=== PATIENT | female | born 1990 | race African-American/Black ===

== ENCOUNTER 2018-12-23 07:15 | Emergency (ER) | payer SELFPAY ==
--- NOTE | 2018-12-23 09:44 | ER Document Report ---
ED Medical Screen (RME) - General Chief Complaint: Abdominal Pain Stated Complaint: RASH/ABDOMINAL PAIN/DIZZY/VOMITING Time Seen by Provider: 12/23/18 09:42 Mode of Arrival: Ambulatory Information source: Patient Notes: Patient is a 28-year-old female who presented to the ER for multiple complaints, approximately 3 to 4 days of intermittent hives, abscess that she drained her left abdominal wall on the left side, no history of MRSA, also complaining of pelvic discomfort with increased vaginal discharge, no burning with urination, fevers or chills. She also admits to dizziness and vomiting. TRAVEL OUTSIDE OF THE [place] IN LAST 30 DAYS: No - Related Data Allergies/Adverse Reactions: activated charcoal [From Charcoal Plus] Allergy (Verified 01/09/15 16:00) simethicone [From Charcoal Plus] Allergy (Verified 01/09/15 16:00) Past Medical History - General Information source: Patient Past Surgical History: Reports: Hx Oral Surgery - Immunizations Hx Diphtheria, Pertussis, Tetanus Vaccination: Yes Review of Systems - Review of Systems Gastrointestinal: See HPI Female Genitourinary: See HPI Skin: See HPI Physical Exam - Vital signs Vitals: Temp Pulse Resp BP Pulse Ox 98.3 F 62 16 122/59 L 100 12/23/18 07:20 12/23/18 07:20 12/23/18 07:20 12/23/18 07:20 12/23/18 07:20 - Notes Notes: PHYSICAL EXAMINATION: GENERAL: Well-appearing and in no acute distress. ABDOMEN: Soft, no tenderness. No guarding, no rebound Course - Vital Signs Vital signs: Temp Pulse Resp BP Pulse Ox 98.3 F 62 16 122/59 L 100 12/23/18 07:20 12/23/18 07:20 12/23/18 07:20 12/23/18 07:20 12/23/18 07:20
[2018-12-23 10:39] LABS: ABSOLUTE EOSINOPHILS # (AUTO) 0.1 10^3/uL (0.0-0.6); ABSOLUTE MONOCYTES (AUTO) 0.4 10^3/uL (0.1-1.4); ABSOLUTE NEUT (AUTO) 3.8 10^3/uL (1.7-8.2); BASOPHILS % (AUTO) 0.8 % (0-2); EOSINOPHILS % (AUTO) 2.2 % (0-6); HEMOGLOBIN 11.6 g/dL (12.0-15.5); LYMPHOCYTES % (AUTO) 18.6 % (13-45); MEAN CORPUSCULAR HEMOGLOBIN 23.4 pg (27.0-33.4); MEAN CORPUSCULAR HGB CONC 31.4 g/dL (32.0-36.0); MEAN CORPUSCULAR VOLUME 75 fl (80-97); MONOCYTES % (AUTO) 7.5 % (3-13); PLATELET COUNT 307 10^3/uL (150-450); RED BLOOD COUNT 4.96 10^6/uL (3.72-5.28); RED CELL DISTRIBUTION WIDTH 14.4 % (11.5-14.0); SEGMENTED NEUTROPHILS % (AUTO) 70.9 % (42-78); TOTAL CELLS COUNTED % (AUTO) 100 %; WHITE BLOOD COUNT 5.3 10^3/uL (4.0-10.5)
--- NOTE | 2018-12-23 10:49 | ER Document Report ---
ED General - General Chief Complaint: Abdominal Pain Stated Complaint: RASH/ABDOMINAL PAIN/DIZZY/VOMITING Time Seen by Provider: 12/23/18 09:42 Mode of Arrival: Ambulatory Information source: Patient Notes: Patient presents emergency department with multiple complaints. Patient reports she has a rash that comes and goes past couple weeks. She reports she works at [employer] and thinks it may be the boxes she is picking up. No rash now noted. Patient also reports she had a abscess on her left side and it popped a couple days ago site is benign now. Patient reports she is been having lower pelvic pain with vaginal discharge for the past 2 weeks. She describes the discharge is white thinner than yogurt. Denies itch. Denies pain with void. Reports she is been dizzy on and off and she is possibly . She is . Last menstrual period was December 03. Last bowel movement was yesterday was normal. Reports she vomited on and off all day yesterday. No vomiting today. Denies f ever or diarrhea. Patient is nontoxic looking playing on her phone the entire time we talked. TRAVEL OUTSIDE OF THE [place] IN LAST 30 DAYS: No - HPI Onset: Other Onset/Duration: Persistent, Waxing and waning Quality of pain: Pressure Severity: Severe Pain Level: 4 Associated symptoms: Vomiting Exacerbated by: Denies Relieved by: Denies Similar symptoms previously: No Recently seen / treated by doctor: No - Related Data Allergies/Adverse Reactions: activated charcoal [From Charcoal Plus] Allergy (Verified 01/09/15 16:00) simethicone [From Charcoal Plus] Allergy (Verified 01/09/15 16:00) Past Medical History - General Information source: Patient Last Menstrual Period: 12/03/18 - Social History Smoking Status: Never Smoker Cigarette use (# per day): No Frequency of alcohol use: Occasional Drug Abuse: None Occupation: [employer] Lives with: Family Family History: Reviewed & Not Pertinent Patient has suicidal ideation: No Patient has homicidal ideation: No - Medical History Medical History: Negative Renal/ Medical History: Denies: Hx Peritoneal Dialysis Past Surgical History: Reports: Hx Section, Hx Oral Surgery - Immunizations Hx Diphtheria, Pertussis, Tetanus Vaccination: Yes Review of Systems - Review of Systems Notes: Review HPI for review of systems., All other systems negative Physical Exam - Vital signs Vitals: Temp Pulse Resp BP Pulse Ox 98.3 F 62 16 122/59 L 100 12/23/18 07:20 12/23/18 07:20 12/23/18 07:20 12/23/18 07:20 12/23/18 07:20 - General General appearance: Appears well, Alert In distress: None - HEENT Head: Normocephalic Eyes: Normal Conjunctiva: Normal Mouth/Lips: Normal Mucous membranes: Normal Pharynx: Normal Neck: Normal, Supple. No: Lymphadenopathy - Respiratory Respiratory status: No respiratory distress Chest status: Nontender Breath sounds: Normal Chest palpation: Normal - Cardiovascular Rhythm: Regular Heart sounds: Normal auscultation - Abdominal Inspection: Normal Distension: No distension Bowel sounds: Normal Tenderness: Nontender Organomegaly: No organomegaly - Extremities General upper extremity: Normal ROM General lower extremity: Normal ROM - Neurological Neuro grossly intact: Yes Cognition: Normal Orientation: AAOx4 [place] Coma Scale Eye Opening: Spontaneous [place] Coma Scale Verbal: Oriented [place] Coma Scale Motor: Obeys Commands [place] Coma Scale Total: 15 Speech: Normal Motor strength normal: LUE, RUE, LLE, RLE Sensory: Normal - Psychological Associated symptoms: Normal affect, Normal mood - Skin Skin Temperature: Warm Skin Moisture: Dry Skin Color: Normal Course - Re-evaluation Re-evalutation: 12/23/18 Labs unremarkable patient was instructed on all labs. Instructed to STDs results will take at least 3 hours. She was given the option of be treated for STDs now, wait for results or come back for treatment patient request to be treated for STDs. 12/23/18 16:07 STD culture negative. Dictation of this chart was performed using voice recognition software; therefore, there may be some unintended grammatical errors. 12/23/18 16:08 - Vital Signs Vital signs: Temp Pulse Resp BP Pulse Ox 98.3 F 57 L 16 114/65 100 12/23/18 12:43 12/23/18 12:43 12/23/18 07:20 12/23/18 12:43 12/23/18 12:43 - Laboratory Result Diagrams: 12/23/18 10:23 12/23/18 10:23 Laboratory results interpreted by me: 12/23/18 12/23/18 12/23/18 10:23 10:23 10:23 Hgb 11.6 L MCV 75 L MCH 23.4 L MCHC 31.4 L RDW 14.4 H Chloride 108 H Creatinine 0.50 L Urine Ketones TRACE H Procedures - Pelvic Exam Pelvic exam Time completed: 11:25 Cultures obtained: No - URINE CULTURES COLLECTED Wet prep obtained: Yes Herpes culture obtained: No POC sent to lab: No Foreign body removed: No Bimanual exam performed: Yes Witnessed by: Radha HILLMAN Notes: 12/23/18 11:42 WHITE DISCHARGE NOTE Discharge - Discharge Clinical Impression: Vaginal discharge Abdominal pain Qualifiers: Abdominal location: unspecified location Qualified Code(s): R10.9 - Unspecified abdominal pain Condition: Stable Disposition: HOME, SELF-CARE Instructions: Abdominal Pain ([facility]), Azithromycin ([facility]), Chlamydia ([facility]), Dizziness ([facility]), Gonorrhea ([facility]), Metronidazole ([facility]), [facility], Rocephin ([facility]), Vaginosis, Bacterial ([facility]) Additional Instructions: *You have been evaluated for abdominal pain, vaginal discharge possible STD bacterial vaginosis Have been treated prophylactically for gonorrhea and chlamydia. If you like to know the results of your STD cultures please contact [phone] Wednesday through Wednesday 8-4. *Take medication as prescribed *Follow up with a primary care provider or the health department within 1 week for recheck *Return to ED for worsening condition, changes, needs *Return to ED if not better in 24 hours Prescriptions: Metronidazole [Flagyl 500 mg Tablet] 500 mg PO BID #14 tablet Forms: Return to Work
[2018-12-23 11:01] LABS: APPEARANCE,URINE SLIGHTLY-CLOUDY; BILIRUBIN,URINE NEGATIVE (NEGATIVE); COLOR,URINE YELLOW; GLUCOSE, URINE NEGATIVE (NEGATIVE); KETONES,URINE TRACE mg/dL (NEGATIVE); LEUKOCYTE ESTERASE,URINE NEGATIVE (NEGATIVE); NITRITE,URINE NEGATIVE (NEGATIVE); PROTEIN,URINE NEGATIVE (NEGATIVE); URINE SPECIFIC GRAVITY 1.026; UROBILINOGEN,URINE NEGATIVE mg/dL (<2.0)
[2018-12-23 11:03] LABS: ALANINE AMINOTRANSFERASE 15 U/L (9-52); ALBUMIN 4.1 g/dL (3.5-5.0); ALKALINE PHOSPHATASE 41 U/L (38-126); ANION GAP 7 (5-19); ASPARTATE AMINO TRANSFERASE 30 U/L (14-36); BILIRUBIN,DIRECT 0.3 mg/dL (0.0-0.4); BILIRUBIN,TOTAL 0.7 mg/dL (0.2-1.3); BLOOD UREA NITROGEN 12 mg/dL (7-20); CALCIUM 8.9 mg/dL (8.4-10.2); CARBON DIOXIDE 23 mmol/L (22-30); CHLORIDE 108 mmol/L (98-107); GLUCOSE 95 mg/dL (75-110); LIPASE 50.8 U/L (23-300); POTASSIUM 4.6 mmol/L (3.6-5.0); SODIUM 138.3 mmol/L (137-145); TOTAL PROTEIN 8.1 g/dL (6.3-8.2)
[2018-12-23 11:25] LABS: BACTERIA (WET MOUNT) 3+ BACTERIA SEEN; EPITHELIALS (WET MOUNT) 3+ EPITHELIALS SEEN; T.VAGINALIS (WET MOUNT) NO TRICHOMONAS SEEN; WBCS (WET MOUNT) FEW WBCS SEEN; YEAST (WET MOUNT) NO YEAST SEEN
[2018-12-23] MEDS ORDERED: CEFTRIAXONE INJ 250 MG VIAL IM ONE (11:41)
[2018-12-23] MEDS ORDERED: AZITHROMYCIN 250 MG TABLET PO ONE (11:41)
[2018-12-23] MEDS ORDERED: LIDOCAINE 1% INJ-PF (10 MG/ML) 30 ML SDV NEB ONE (11:41)
[2018-12-23 12:30] LABS: CHLAM PCR NOT DETECTED (NOT DETECT); GON PCR NOT DETECTED (NOT DETECT)
[2018-12-23 12:46] VITALS: BP 114/65
== END 2018-12-23 12:46 | disposition home or self-care (01) ==
LOC: ER 07:15
DX: N89.8 Other specified noninflammatory disorders of vagina (principal); R10.2 Pelvic and perineal pain; R42 Dizziness and giddiness
CPT/HCPCS: 99284; 96372; 36415; 87210; 83690; 85025; 81025; 80053; 81001; 87491; 87591; J3490; J0696

== ENCOUNTER 2019-05-15 15:36 | Emergency (ER) | payer MEDICAID ==
[2019-05-15] MEDS ORDERED: METOCLOPRAMIDE HCL 10 MG TABLET PO ONE (15:45)
--- NOTE | 2019-05-15 15:48 | ER Document Report ---
ED Medical Screen (RME) - General Chief Complaint: Dizziness Stated Complaint: VOMITING Time Seen by Provider: 05/15/19 15:44 Mode of Arrival: Ambulatory Information source: Patient Notes: 28-year-old female presented to ED for complaint of nausea and vomiting a week. She is 10 weeks with twins. She states she is 4 para 3. She states she is taking nausea medicine that worked until about a week ago. She states she cannot keep hydrated because she keeps vomiting. Patient is alert oriented respirations regular nonlabored speaking in full sentences. She denies smoking drinking or use of any illicit drugs. She states she has had one C- section otherwise no medical history. I have greeted and performed a rapid initial assessment of this patient. A comprehensive ED assessment and evaluation of the patient, analysis of test results and completion of medical decision making process will be conducted by an additional ED providers. TRAVEL OUTSIDE OF THE [place] IN LAST 30 DAYS: No - Related Data Allergies/Adverse Reactions: activated charcoal [From Charcoal Plus] Allergy (Verified 05/15/19 15:44) simethicone [From Charcoal Plus] Allergy (Verified 05/15/19 15:44) Past Medical History Renal/ Medical History: Denies: Hx Peritoneal Dialysis Past Surgical History: Reports: Hx Section, Hx Oral Surgery - Immunizations Hx Diphtheria, Pertussis, Tetanus Vaccination: Yes Physical Exam - Vital signs Vitals: Temp Pulse Resp BP Pulse Ox 98.0 F 80 16 145/69 H 100 05/15/19 15:42 05/15/19 15:42 05/15/19 15:42 05/15/19 15:42 05/15/19 15:42 Course - Vital Signs Vital signs: Temp Pulse Resp BP Pulse Ox 98.0 F 80 16 145/69 H 100 05/15/19 15:42 05/15/19 15:42 05/15/19 15:42 05/15/19 15:42 05/15/19 15:42
[2019-05-15 16:17] LABS: ABSOLUTE EOSINOPHILS # (AUTO) 0.1 10^3/uL (0.0-0.6); ABSOLUTE MONOCYTES (AUTO) 0.7 10^3/uL (0.1-1.4); ABSOLUTE NEUT (AUTO) 6.4 10^3/uL (1.7-8.2); BASOPHILS % (AUTO) 0.3 % (0-2); EOSINOPHILS % (AUTO) 1.2 % (0-6); HEMATOCRIT 35.7 % (36.0-47.0); HEMOGLOBIN 11.5 g/dL (12.0-15.5); LYMPHOCYTES % (AUTO) 12.3 % (13-45); MEAN CORPUSCULAR HEMOGLOBIN 23.7 pg (27.0-33.4); MEAN CORPUSCULAR HGB CONC 32.1 g/dL (32.0-36.0); MEAN CORPUSCULAR VOLUME 74 fl (80-97); MONOCYTES % (AUTO) 8.2 % (3-13); PLATELET COUNT 308 10^3/uL (150-450); RED BLOOD COUNT 4.83 10^6/uL (3.72-5.28); TOTAL CELLS COUNTED % (AUTO) 100 %; WHITE BLOOD COUNT 8.2 10^3/uL (4.0-10.5)
[2019-05-15 16:20] LABS: AMORPHOUS SEDIMENT,URINE TRACE /HPF; APPEARANCE,URINE SLIGHTLY-CLOUDY; BILIRUBIN,URINE NEGATIVE (NEGATIVE); COLOR,URINE YELLOW; GLUCOSE, URINE NEGATIVE (NEGATIVE); KETONES,URINE TRACE mg/dL (NEGATIVE); PROTEIN,URINE NEGATIVE (NEGATIVE); URINE SPECIFIC GRAVITY 1.027
[2019-05-15 16:36] LABS: ALBUMIN 3.8 g/dL (3.5-5.0); ALKALINE PHOSPHATASE 42 U/L (38-126); ANION GAP 9 (5-19); ASPARTATE AMINO TRANSFERASE 25 U/L (14-36); BILIRUBIN,TOTAL 0.5 mg/dL (0.2-1.3); BLOOD UREA NITROGEN 9 mg/dL (7-20); CARBON DIOXIDE 25 mmol/L (22-30); CHLORIDE 104 mmol/L (98-107); GLUCOSE 90 mg/dL (75-110); POTASSIUM 4.4 mmol/L (3.6-5.0); TOTAL PROTEIN 7.5 g/dL (6.3-8.2)
[2019-05-15] MEDS ORDERED: NORMAL SALINE 1000 ML 1,000 ML IV ONE (17:42)
--- NOTE | 2019-05-15 17:51 | ER Document Report ---
ED GI/ - General Chief Complaint: Vomiting Stated Complaint: VOMITING Time Seen by Provider: 05/15/19 15:44 Mode of Arrival: Ambulatory Notes: HPI: 28-year-old -0-1-3 at 10 weeks by ultrasound at [facility] who presents today with some nausea and vomiting since Ravi. Patient has a history of vomiting with . She has been on Diclegis by her primary doctor. Patient denies any and all abdominal pain, dysuria, or vaginal bleeding. She does feel slightly lightheaded. ROS: See HPI All other review of systems reviewed and otherwise negative Reviewed vital signs and nursing note as charted by RN. PHYSICAL EXAM: CONSTITUTIONAL: Alert and oriented and responds appropriately to questions. Well-appearing; well-nourished HEAD: Normocephalic; atraumatic EYES: Sclerae non-icteric ENT: Normal nose; no rhinorrhea; dry mucous membranes; pharynx without lesions noted NECK: Supple without meningismus; non-tender; no cervical lymphadenopathy, no masses CARD: Regular rate and rhythm; no murmurs; symmetric distal pulses RESP: Normal chest excursion without splinting or tachypnea; breath sounds clear and equal bilaterally ABD/GI: Normal bowel sounds; non-distended; soft, non-tender to deep palpation of all 4 quadrants of the abdomen including the suprapubic region BACK: The back appears normal and is non-tender to palpation EXT: Normal ROM in all joints; non-tender to palpation; no edema SKIN: No acute lesions noted NEURO: CN 2-12 intact; 5/5 bilateral upper and lower extremity strength with sensation intact to light touch PSYCH: The patient's mood and manner are appropriate. Grooming and personal hygiene are appropriate. TRAVEL OUTSIDE OF THE [place] IN LAST 30 DAYS: No - Related Data Allergies/Adverse Reactions: activated charcoal [From Charcoal Plus] Allergy (Verified 05/15/19 15:44) simethicone [From Charcoal Plus] Allergy (Verified 05/15/19 15:44) Home Medications: nausea medication. Past Medical History - General Information source: Patient - Social History Smoking Status: Unknown if Ever Smoked Chew tobacco use (# tins/day): No Frequency of alcohol use: None Drug Abuse: None Family History: Reviewed & Not Pertinent Patient has suicidal ideation: No Patient has homicidal ideation: No Renal/ Medical History: Denies: Hx Peritoneal Dialysis Past Surgical History: Reports: Hx Section, Hx Oral Surgery - Immunizations Hx Diphtheria, Pertussis, Tetanus Vaccination: Yes Physical Exam - Vital signs Vitals: Temp Pulse Resp BP Pulse Ox 98.0 F 80 16 145/69 H 100 05/15/19 15:42 05/15/19 15:42 05/15/19 15:42 05/15/19 15:42 05/15/19 15:42 Course - Re-evaluation Re-evalutation: 05/15/19 17:50 Given the above history and physical with no pain or vaginal bleeding with vital signs as recorded, we will obtain basic electrolytes provide antinausea medications, obtain a urine analysis, and touch base with the patient's FRICTION SAW OPERATOR. We will provide a liter of fluid and reassess. 05/15/19 18:07 Labs as recorded. Urine culture has been sent. I discussed the case with the on-call FRICTION SAW OPERATOR and she is comfortable with Zofran or Phenergan. We will make sure that the patient can tolerate p.o. fluids prior to discharge. Minimal ketones in the urine. I did call and we did verify twin gestation IUP on previous ultrasound. - Vital Signs Vital signs: Temp Pulse Resp BP Pulse Ox 98.0 F 80 16 145/69 H 100 05/15/19 15:42 05/15/19 15:42 05/15/19 15:42 05/15/19 15:42 05/15/19 15:42 - Laboratory Result Diagrams: 05/15/19 15:55 05/15/19 15:55 Laboratory results interpreted by me: 05/15/19 05/15/19 15:55 15:55 Hgb 11.5 L Hct 35.7 L MCV 74 L MCH 23.7 L Lymph % (Auto) 12.3 L Urine Ketones TRACE H Urine Urobilinogen 2.0 H Leukocyte Esterase Rfl SMALL H Urine Ascorbic Acid 40 H Discharge - Discharge Clinical Impression: Vomiting affecting Condition: Good Disposition: HOME, SELF-CARE Additional Instructions: Come back immediately with any repeat or excessive vomiting, abdominal pain or cramping, vaginal bleeding, fevers, pain with urination, or any other acute problems. Please follow-up with the FRICTION SAW OPERATOR health department as discussed. Take the Zofran medication as needed in addition to the diglegis for vomiting. Prescriptions: Ondansetron [Zofran Odt 4 mg Tablet] 1 tab PO Q6H #15 [email or web address]
[2019-05-15 20:29] VITALS: BP 134/64
== END 2019-05-15 20:31 | disposition home or self-care (01) ==
LOC: ER 15:36
DX: O21.9 Vomiting of pregnancy, unspecified (principal); O26.891 Other specified pregnancy related conditions, first trimester; R42 Dizziness and giddiness; O30.001 Twin pregnancy, unspecified number of placenta and unspecified number of amniotic sacs, first trimester; Z79.899 Other long term (current) drug therapy; Z3A.10 10 weeks gestation of pregnancy
CPT/HCPCS: 36415; 87086; 85025; 80053; 81001; J3490; J7030; 96360; 96361; 99284

== ENCOUNTER 2019-08-12 00:31 | Emergency (ER) | payer MEDICAID ==
[2019-08-12 02:12] LABS: A TYPE INFLUENZA AG NEGATIVE (NEGATIVE); B INFLUENZA AG NEGATIVE (NEGATIVE)
--- NOTE | 2019-08-12 06:20 | ER Document Report ---
ED General - General Chief Complaint: Flu Symptoms Stated Complaint: FEVER,CHILLS Time Seen by Provider: 08/12/19 05:06 TRAVEL OUTSIDE OF THE [place] IN LAST 30 DAYS: No - HPI Notes: Ms. Ellis is a 28-year-old 4 para 2 currently at 23 weeks EGA with twin gestation now presenting with flulike symptoms for the past 24 hours. She vomited once yesterday but is no longer nauseated. She has had nasal congestion and nonproductive cough. Mild sore throat. Low-grade temperature. No diarrhea. Fluid intake is good at this time. She is feeling movement of both of babies. No contractions. No vaginal bleeding. - Related Data Allergies/Adverse Reactions: activated charcoal [From Charcoal Plus] Allergy (Verified 05/15/19 15:44) simethicone [From Charcoal Plus] Allergy (Verified 05/15/19 15:44) Home Medications: vitamin Past Medical History - General Information source: Patient - Social History Smoking Status: Never Smoker Family History: Reviewed & Not Pertinent Patient has suicidal ideation: No Patient has homicidal ideation: No Renal/ Medical History: Denies: Hx Peritoneal Dialysis Past Surgical History: Reports: Hx Section, Hx Oral Surgery - Immunizations Hx Diphtheria, Pertussis, Tetanus Vaccination: Yes Review of Systems - Review of Systems Notes: Constitutional: As per HPI. HENT: As per HPI. Eyes: Negative for visual changes. Cardiovascular: Negative for chest pain. Respiratory: as per HPI. Gastrointestinal: As per HPI. Genitourinary: Negative for dysuria. Musculoskeletal: Negative for back pain. Skin: Negative for rash. Neurological: Negative for headaches, weakness or numbness. 10 point ROS negative except as marked above and in HPI. Physical Exam - Vital signs Vitals: Temp Pulse Resp BP Pulse Ox 98.0 F 64 15 113/67 95 08/12/19 00:31 08/12/19 00:31 08/12/19 00:31 08/12/19 00:08/12/19 00:31 - Notes Notes: GENERAL: Well-developed well-nourished appearing in no acute distress. SKIN: Good turgor no rashes. HEAD: Normocephalic atraumatic. EYES: PERRLA. EOMI. Conjunctivae and sclerae clear. EARS: CANALS AND TMS CLEAR. NOSE: CLEAR nasal drainage bilaterally. MOUTH: Moist mucosa. Good dentition. No stridor or edema. No drooling. Throat: Injected without exudate. NECK: Supple. No masses or thyromegaly. No adenopathy. Carotids 2+ without bruits. No JVD. BACK: Symmetrical without tenderness. CHEST: Respirations unlabored. Breath sounds clear and symmetrical. HEART: Regular rhythm. No murmur gallop or rub. ABDOMEN: Uterus is palpably enlarged consistent with twin gestation at 23 weeks. movement present. 2 discrete heartbeats are identified with Dopp ler. Heart rate #1 is 145. Heart rate #2 is 150. Soft nontender without masses, hepatosplenomegaly or rebound. Bowel sounds normally active. No bruits. GENITALIA: Deferred. EXTREMITIES: No edema. No calf tenderness. Cap refill less than 1.5 seconds. Dorsalis pedis and posterior tibial pulses 3+ and symmetrical. NEUROLOGICAL: GCS 15. Alert and oriented x3. Normal gait. Fluent speech. Cranial nerves II through XII intact. Sensorimotor and cerebellar normal. Normal tone. PSYCHIATRIC: Appropriate affect. Course - Re-evaluation Re-evalutation: 08/12/19 06:19 Screening for strep and influenza A and influenza B all negative here. Patient is taken Tylenol earlier and feels much better. Encouraged her to push p.o. fluids and continue Tylenol. Contact her COBOL APPLICATION DEVELOPER for follow-up within the next 48 hours. Return here as needed for new or worsening symptoms. - Vital Signs Vital signs: Temp Pulse Resp BP Pulse Ox 98.0 F 64 15 113/67 95 08/12/19 00:31 08/12/19 00:31 08/12/19 00:31 08/12/19 00:31 08/12/19 00:31 Discharge - Discharge Clinical Impression: Acute viral syndrome, Twin gestation at 23 weeks EGA Condition: Stable Disposition: HOME, SELF-CARE Instructions: Acetaminophen, Fever ([facility]), Viral Syndrome ([facility]) Additional Instructions: Increase oral fluids. Tylenol as needed. Contact your COBOL APPLICATION DEVELOPER provider for follow-up within the next 48 hours. Return here as needed for new or worsening symptoms: Shortness of breath Pain that is worsening or unimproved Uncontrolled vomiting High fever or shaking chills Overall worsening
[2019-08-12 08:11] VITALS: BP 114/67
== END 2019-08-12 08:06 | disposition home or self-care (01) ==
LOC: ER 00:31
DX: O98.512 Other viral diseases complicating pregnancy, second trimester (principal); O30.002 Twin pregnancy, unspecified number of placenta and unspecified number of amniotic sacs, second trimester; O26.892 Other specified pregnancy related conditions, second trimester; R50.9 Fever, unspecified; R09.81 Nasal congestion; R05 Cough; J02.9 Acute pharyngitis, unspecified; O21.9 Vomiting of pregnancy, unspecified; Z3A.23 23 weeks gestation of pregnancy
CPT/HCPCS: 87070; 87804; 87880; 99283

== ENCOUNTER 2019-11-03 10:28 | Outpatient (CLI) | payer MEDICAID ==
--- NOTE | 2019-11-03 11:15 | Non Stress Test Report ---
Non Stress Test Datetime Report Generated by CPN: 11/03/2019 11:15 DEMOGRAPHIC Test Number: 1 EGA NST: 36.1 MONITORING Monitor Explained: Monitor Explained; Test Explained; Patient Verbalized Understanding Time on Monitor: 11/03/2019 10:40 Time off Monitor: 11/03/2019 11:03 NST Duration: 23 NST INTERVENTIONS NST Interventions: PO Hydration; Reposition Patient Physician Notified NST: AEllie Blanco, CNM BABY A: [id number] BABY A Movement : Present Contraction Frequency : X1 FHR Baseline : 140 Accelerations : 15X15 Decelerations : None Variability : Moderate 6-25bpm NST Review: Meets Criteria for Reactive NST NST Review and Verified By : KADY [place] Results: Reactive BABY B Movement: Present FHR Baseline: 135 Accelerations: 15X15 Decelerations: None Variability: Moderate 6-25bpm NST Review: Meets Criteria for Reactive NST NST Reviewed And Verified By: R. Marhef[place], RN NST Results: Reactive NST REPORT Report Trigger: Send Report
== END 2019-11-03 11:11 | disposition home or self-care (01) ==
LOC: LC 10:28
PROVIDERS: ATTEND Obstetrics & Gynecology
DX: O30.003 Twin pregnancy, unspecified number of placenta and unspecified number of amniotic sacs, third trimester (principal); Z3A.36 36 weeks gestation of pregnancy
CPT/HCPCS: 59025

== ENCOUNTER 2019-11-10 05:46 | Inpatient (IN) | payer MEDICAID ==
[2019-11-03 10:58] LABS: ABSOLUTE EOSINOPHILS # (AUTO) 0.1 10^3/uL (0.0-0.6); ABSOLUTE LYMPHOCYTES (AUTO) 1.1 10^3/uL (0.5-4.7); ABSOLUTE MONOCYTES (AUTO) 0.5 10^3/uL (0.1-1.4); ABSOLUTE NEUT (AUTO) 4.1 10^3/uL (1.7-8.2); BASOPHILS % (AUTO) 0.4 % (0-2); EOSINOPHILS % (AUTO) 1.4 % (0-6); HEMATOCRIT 36.8 % (36.0-47.0); LYMPHOCYTES % (AUTO) 18.5 % (13-45); MEAN CORPUSCULAR HEMOGLOBIN 25.1 pg (27.0-33.4); MEAN CORPUSCULAR HGB CONC 32.6 g/dL (32.0-36.0); MEAN CORPUSCULAR VOLUME 77 fl (80-97); PLATELET COUNT 277 10^3/uL (150-450); RED BLOOD COUNT 4.77 10^6/uL (3.72-5.28); SEGMENTED NEUTROPHILS % (AUTO) 70.7 % (42-78); TOTAL CELLS COUNTED % (AUTO) 100 %; WHITE BLOOD COUNT 5.9 10^3/uL (4.0-10.5)
[2019-11-03 11:10] LABS: AMORPHOUS SEDIMENT,URINE TRACE /HPF; APPEARANCE,URINE SLIGHTLY-CLOUDY; BILIRUBIN,URINE NEGATIVE (NEGATIVE); COLOR,URINE YELLOW; GLUCOSE, URINE NEGATIVE (NEGATIVE); KETONES,URINE NEGATIVE (NEGATIVE); LEUKOCYTE ESTERASE,URINE LARGE (NEGATIVE); NITRITE,URINE NEGATIVE (NEGATIVE); PROTEIN,URINE NEGATIVE (NEGATIVE); URINE SPECIFIC GRAVITY 1.008; UROBILINOGEN,URINE NEGATIVE mg/dL (<2.0)
[2019-11-03 11:26] LABS: URINE AMPHETAMINES SCREEN NEGATIVE; URINE BARBITURATES SCREEN NEGATIVE; URINE BENZODIAZEPINES SCREEN NEGATIVE; URINE COCAINE SCREEN NEGATIVE; URINE MARIJUANA (THC) SCREEN NEGATIVE; URINE METHADONE SCREEN NEGATIVE; URINE PHENCYCLIDINE SCREEN NEGATIVE
[~2019-11-10 05:46] MED LIST: CEFAZOLIN SODIUM 2 GM in DEXTROSE 5%-WATER 100 ML IV PRN
[2019-11-10] MEDS ORDERED: RINGERS SOLUTION,LACTATED 1,000 ML IV PRN (06:22)
[2019-11-10] MEDS ORDERED: RINGERS SOLUTION,LACTATED 1,000 ML IV ONE (06:30)
[2019-11-10] MEDS ORDERED: OXYTOCIN/NORMAL SALINE 20 UNIT/1,000 ML RTUINJ ONE (08:33)
[2019-11-10] MEDS ORDERED: OXYTOCIN 10 UNIT/ML VIAL ONE (08:33)
[2019-11-10] MEDS ORDERED: MIDAZOLAM 2 MG/2 ML INJ ONE (08:33)
[2019-11-10] MEDS ORDERED: ONDANSETRON HCL INJ/PF 4 MG/2 ML SDV ONE (08:33)
[2019-11-10] MEDS ORDERED: MORPHINE SULFATE 10 MG/ML INJ ONE ×3 (08:34→13:06)
[2019-11-10] MEDS ORDERED: MEPERIDINE HCL/PF INJ 25 MG/1 ML DISP.SYRIN IV PRN (09:33)
[2019-11-10] MEDS ORDERED: DIPHENHYDRAMINE HCL 50 MG/ML VIAL IV PRN (09:33)
[2019-11-10] MEDS ORDERED: ONDANSETRON HCL INJ/PF 4 MG/2 ML SDV IV PRN (09:33)
[2019-11-10] MEDS ORDERED: PROMETHAZINE HCL INJ 25 MG/1 ML VIAL IV PRN ×3 (09:33→09:43)
[2019-11-10] MEDS ORDERED: MORPHINE SULFATE 10 MG/ML INJ IV PRN (09:33)
[2019-11-10] MEDS ORDERED: FENTANYL CITRATE INJ/PF 100 MCG/2 ML AMPUL IV PRN ×2 (09:33)
[2019-11-10] MEDS ORDERED: OXYCODONE-ACETAMINOPHEN 5-325 MG TABLET PO PRN (09:43)
[2019-11-10] MEDS ORDERED: OXYTOCIN/NORMAL SALINE 20 UNIT/1,000 ML RTUINJ IV PRN (09:43)
[2019-11-10] MEDS ORDERED: ACETAMINOPHEN 325 MG TABLET PO PRN (09:43)
[2019-11-10] MEDS ORDERED: MORPHINE SULFATE 10 MG/ML INJ IM PRN (09:43)
[2019-11-10] MEDS ORDERED: ACETAMINOPHEN 1,000 MG/100 ML RTUPB IV PRN (09:43)
[2019-11-10] MEDS ORDERED: MEASLES,MUMPS&RUBELLA VACC/PF 0.5 ML VIAL SUBCUT PRN (09:43)
[2019-11-10] MEDS ORDERED: SIMETHICONE 80 MG TAB.CHEW PO PRN (09:43)
[2019-11-10] MEDS ORDERED: DIPH/PERTUSS(ACELL)/TETANUS VAC/PF 0.5 ML SYR (>=10YO) IM PRN (09:43)
--- NOTE | 2019-11-10 09:46 | PDOC DELIVERY SUMMARY ---
Delivery Summary - Maternal Hx : V Hx # Term Pregnancies: 3 Hx # Pregnancies: 0 Hx Total # of Abortions (Sponateous & Elective): 1 FLOR: 11/30/19 Gestational Age: 37.1 Risk Factors: Previous , Other Ruptured Membranes: AROM Fluids: Clear - Delivery Labor: Not In Labor Presentation: Vertex, Breech Heart Rate Monitoring: Done Pre-Operatively Uterine Contraction Monitoring: External Support Person Present: Yes : Scheduled Placenta: Within Normal Limits Nuchal Cord: No - Medications Type of Anesthesia:: Spinal
--- NOTE | 2019-11-10 09:58 | Operative Report ---
Operative Report DATE OF SURGERY: 11/10/19 PREOPERATIVE DIAGNOSIS: IUP term prior section twins and desire for st erilization POSTOPERATIVE DIAGNOSIS: Same OPERATION: P low transverse delivery with 2 viable infants and bilateral tubal occlusion SURGEON: XAVI CRESPO ANESTHESIA: Spinal TISSUE REMOVED OR ALTERED: Placenta ESTIMATED BLOOD LOSS: 900 cc PROCEDURE: The patient was taken to the operating room where spinal anesthesia was obtained and found to be adequate. She was then prepped and draped in the normal sterile fashion and placed in the dorsal supine position with a leftward tilt. A Pfannenstiel skin incision was then made and carried through to the underlying layers of the fascia with the scalpel. The fascia was incised in the midline and the incision extended laterally with the Alarcon scissors. The superior aspect of the fascial incision was then grasped with Louis clamps elevated and the underlying rectus muscles dissected off bluntly. Attention was then turned to the inferior aspect of the fascial incision which in a similar fashion was grasped, tented up with Kike clamps, and the rectus muscles dissected off bluntly. The rectus muscles were then in the midline and the peritoneum at the amount identified and entered bluntly. The peritoneal incision was then extended superiorly and inferiorly with good visualization of the bladder. [The bladder blade was inserted and the vesicouterine peritoneum identified grasped with [place] pickups and entered sharply with the Metzenbaum scissors. His incision was then extended laterally with the Metzenbaum scissors and a bladder flap created digitally. The bladder blade was then reinserted and the lower uterine segment incised in a transverse fashion with the scalpel. The uterine incision was then extended bluntly. The bladder blade was removed and the 's head was delivered from cephalic presentation atraumatically. Cord was clamped and infant passed on the table. Baby b delivered by breech extraction. Was clamped passed on the table. The placenta was then delivered manully and the uterus exteriorized and cleared of all clots and debris. The uterine incision was then repaired with 1-0 Vicryl in a running locked fashion. A second layer of the same suture was used to obtain hemostasis via imbrication of the initial layer. A clip was used to occlude the right tube in the midportion with good purchase of tissue being noted and repeated on the left again with good purchase of tissue being noted. The uterus was returned to the patient's abdomen. The gutters were cleared of all clots and debris. All operative sites were noted to be hemostatic. The fascia was reapproximated with 0 Vicryl in a running fashion from each lateral edge to the midline. The patient tolerated the procedure well. Sponge lap needle and instrument counts are correct -2. 2 g of Ancef were given prior to skin incision. The patient was taken to the recovery area awake and in stable condition.
[2019-11-10] MEDS ORDERED: FENTANYL CITRATE INJ/PF 100 MCG/2 ML AMPUL ONE (10:06)
[2019-11-10] MEDS: FENTANYL CITRATE INJ/PF 100 MCG/2 ML AMPUL IV PRN ×2 (10:07→11:12)
[2019-11-10] MEDS ORDERED: BUPIVACAINE HCL 0.5 % INJ/PF 30 ML SDV ONE (10:14)
[2019-11-10] MEDS ORDERED: ACETAMINOPHEN 1,000 MG/100 ML RTUPB IV ONE (10:27)
[2019-11-10] MEDS ORDERED: MISOPROSTOL 0.2 MG TABLET ONE (11:16)
[2019-11-10] MEDS ORDERED: NIFEDIPINE 30 MG TAB.ER.24 PO ONE (11:57)
[2019-11-10] MEDS ORDERED: TRANEXAMIC ACID INJ/PF 1,000 MG/10 ML SDV ONE (12:13)
[2019-11-10 12:51] LABS: HEMATOCRIT 36.4 % (36.0-47.0); HEMOGLOBIN 11.8 g/dL (12.0-15.5); MEAN CORPUSCULAR HEMOGLOBIN 24.5 pg (27.0-33.4); MEAN CORPUSCULAR HGB CONC 32.5 g/dL (32.0-36.0); MEAN CORPUSCULAR VOLUME 75 fl (80-97); PLATELET COUNT 248 10^3/uL (150-450); RED BLOOD COUNT 4.84 10^6/uL (3.72-5.28); RED CELL DISTRIBUTION WIDTH 14.9 % (11.5-14.0); WHITE BLOOD COUNT 12.2 10^3/uL (4.0-10.5)
[2019-11-10] MEDS ORDERED: CARBOPROST TROMETHAMINE INJ 250 MCG/1 ML AMPULE ONE (12:55)
[2019-11-10] MEDS ORDERED: PROMETHAZINE HCL INJ 25 MG/1 ML VIAL ONE (13:04)
[2019-11-10] MEDS: DOCUSATE SODIUM 100 MG CAPSULE PO SCH ×2 (14:04→17:00)
[2019-11-10] MEDS: PRENATAL VITAMIN W DHA CAPSULE PO SCH (14:04)
[2019-11-10] MEDS: KETOROLAC TROMETHAMINE INJ/PF 30 MG/1 ML SDV IV SCH ×2 (14:45→21:51)
[2019-11-10 18:53] LABS: ABSOLUTE BASOPHILS # (AUTO) 0.1 10^3/uL (0.0-0.2); ABSOLUTE EOSINOPHILS # (AUTO) 0.1 10^3/uL (0.0-0.6); ABSOLUTE LYMPHOCYTES (AUTO) 1.4 10^3/uL (0.5-4.7); ABSOLUTE MONOCYTES (AUTO) 0.6 10^3/uL (0.1-1.4); ABSOLUTE NEUT (AUTO) 9.1 10^3/uL (1.7-8.2); BASOPHILS % (AUTO) 0.8 % (0-2); EOSINOPHILS % (AUTO) 0.5 % (0-6); HEMATOCRIT 30.7 % (36.0-47.0); HEMOGLOBIN 10.2 g/dL (12.0-15.5); MEAN CORPUSCULAR HGB CONC 33.2 g/dL (32.0-36.0); MEAN CORPUSCULAR VOLUME 75 fl (80-97); MONOCYTES % (AUTO) 5.5 % (3-13); PLATELET COUNT 222 10^3/uL (150-450); RED BLOOD COUNT 4.08 10^6/uL (3.72-5.28); RED CELL DISTRIBUTION WIDTH 15.1 % (11.5-14.0); SEGMENTED NEUTROPHILS % (AUTO) 81.2 % (42-78); TOTAL CELLS COUNTED % (AUTO) 100 %; WHITE BLOOD COUNT 11.3 10^3/uL (4.0-10.5)
[2019-11-11 05:16] LABS: HEMATOCRIT 29.5 % (36.0-47.0); MEAN CORPUSCULAR HEMOGLOBIN 25.3 pg (27.0-33.4); MEAN CORPUSCULAR HGB CONC 33.7 g/dL (32.0-36.0); MEAN CORPUSCULAR VOLUME 75 fl (80-97); PLATELET COUNT 223 10^3/uL (150-450); RED BLOOD COUNT 3.93 10^6/uL (3.72-5.28); RED CELL DISTRIBUTION WIDTH 15.3 % (11.5-14.0); WHITE BLOOD COUNT 10.9 10^3/uL (4.0-10.5)
[2019-11-11] MEDS: KETOROLAC TROMETHAMINE INJ/PF 30 MG/1 ML SDV IV SCH (05:29)
--- NOTE | 2019-11-11 10:00 | PDOC PROGRESS REPORT ---
Subjective-OB Progress Note for:: 11/11/19 - POD #1, doing well, s/p Rpt w/ BTL, Twins. O+, Rubella Immune, breast and bottle feeding Physical Exam (OB) Vital Signs: Temp Pulse Resp BP Pulse Ox 98.5 F 81 16 124/63 100 11/11/19 07:27 11/11/19 07:27 11/11/19 07:27 11/11/19 07:27 11/11/19 07:27 Intake & Output 11/10/19 11/11/19 11/12/19 06:59 06:59 06:59 Output Total 1700 1825 Balance -1700 -1825 Weight 83.007 kg - General General Appearance: Appears well, Alert In distress: None - PIH/Pre-Eclampsia DTR's: 1 + Clonus: Negative Headache: Absent Epigastric Pain: No Visual Changes: No - Dressing Removed: No - Medipore dressing CD&I Incision: Dressing, Well Approximated - Lochia Lochia Amount: Scant < 10 ml Lochia Color: Rubra/Red - Abdomen Description: Tender, Soft, Round Hernia Present: No Fundal Description: Firm, Midline Fundal Height: u/u - u/2 - Respiratory Respiratory Status: No respiratory distress - Abdominal Distension: No distension Tenderness: Nontender - Genitourinary Genitourinary Note: voiding - Extremities Upper extremity: Normal inspection Lower extremities: Normal inspection - Neurological Cognition: Normal Orientation: AAOx4 - Skin Skin Temperature: Warm Skin Moisture: Dry Objective-Diagnostic Laboratory: 11/11/19 05:01 11/10/19 11/10/19 11/11/19 12:36 18:38 05:01 WBC 12.2 H 11.3 H 10.9 H RBC 4.84 4.08 3.93 Hgb 11.8 L 10.2 L 10.0 L Hct 36.4 30.7 L 29.5 L MCV 75 L 75 L 75 L MCH 24.5 L 25.0 L 25.3 L MCHC 32.5 33.2 33.7 RDW 14.9 H 15.1 H 15.3 H Plt Count 248 222 223 Seg Neutrophils % 81.2 H Assessment and Plan(PN) - Assessment and Plan (1) hemorrhage Qualifiers: hemorrhage type: other immediate Qualified Code(s): O72.1 - Other immediate hemorrhage Is this a current diagnosis for this admission?: Yes (2) S/P repeat low transverse Is this a current diagnosis for this admission?: Yes (3) Sterilization Is this a current diagnosis for this admission?: Yes (4) Twin dichorionic diamniotic placenta Is this a current diagnosis for this admission?: Yes Plan:: Remove abd dressing today, ambulation encouraged, Routine PP and Post Op orders - Time Spent with Patient Time with patient: Less than 15 minutes Medications reviewed and adjusted accordingly: Yes - Disposition Anticipated Discharge: Home Within: within 48 hours
[2019-11-11] MEDS: NIFEDIPINE 30 MG TAB.ER.24 PO SCH (10:51)
[2019-11-11] MEDS: PRENATAL VITAMIN W DHA CAPSULE PO SCH (10:52)
[2019-11-11] MEDS: DOCUSATE SODIUM 100 MG CAPSULE PO SCH ×2 (10:52→17:35)
[2019-11-11] MEDS ORDERED: IBUPROFEN 800 MG TABLET ONE (13:24)
[2019-11-11] MEDS: IBUPROFEN 800 MG TABLET PO SCH ×2 (13:53→20:25)
[2019-11-12] MEDS: IBUPROFEN 800 MG TABLET PO SCH ×2 (04:10→09:10)
[2019-11-12] MEDS: DOCUSATE SODIUM 100 MG CAPSULE PO SCH (09:10)
[2019-11-12] MEDS: NIFEDIPINE 30 MG TAB.ER.24 PO SCH (09:10)
[2019-11-12] MEDS: PRENATAL VITAMIN W DHA CAPSULE PO SCH (09:10)
--- NOTE | 2019-11-12 10:13 | PDOC DISCHARGE SUMMARY ---
Impression - Admit/DC Date/PCP Admission Date/Primary Care Provider: 11/10/19 05:46 XAVI CRESPO MD Discharge Date: 11/12/19 - POD #2, doing well, desires to go home today. O+, Rubella immune, Twins gestation, breast and bottlefeeding - Discharge Diagnosis (1) hemorrhage Is this a current diagnosis for this admission?: Yes (2) S/P repeat low transverse Is this a current diagnosis for this admission?: Yes (3) Sterilization Is this a current diagnosis for this admission?: Yes (4) Twin dichorionic diamniotic placenta Is this a current diagnosis for this admission?: Yes - Additional Information Resuscitation Status: Full Code Discharge Diet: As Tolerated, Regular Discharge Activity: Activity As Tolerated, No Driving, No Lifting Over 10 Pounds, Pelvic Rest Referrals: XAVI CRESPO MD [Primary Care Provider] - Prescriptions: Ibuprofen [Motrin 800 mg Tablet] 800 mg PO Q6A #60 tablet Oxycodone HCl/Acetaminophen [Percocet 5-325 mg Tablet] 2 tab PO Q4HP PRN #30 tablet PRN Reason: Pain Scale Of 4 Home Medications: 95/Iron Fum/Folic/Dha [ + Dha Combo Pack] 1 each PO DAILY 11/03/19 Ibuprofen [Motrin 800 mg Tablet] 800 mg PO Q6A #60 tablet 11/12/19 Oxycodone HCl/Acetaminophen [Percocet 5-325 mg Tablet] 2 tab PO Q4HP PRN #30 tablet 11/12/19 HPI Reason(s) for Admission: Ceasarean Section-Repeat, Twins Procedures: NST, Ultrasound Intrapartum Procedure(s): : Low Cervical, Transverse, Tubal Ligation Hospital Course Hospital Course: normal Results Laboratory Results: WBC 10.9 10^3/uL (4.0-10.5) H 11/11/19 05:01 RBC 3.93 10^6/uL (3.72-5.28) 11/11/19 05:01 Hgb 10.0 g/dL (12.0-15.5) L 11/11/19 05:01 Hct 29.5 % (36.0-47.0) L 11/11/19 05:01 MCV 75 fl (80-97) L 11/11/19 05:01 MCH 25.3 pg (27.0-33.4) L 11/11/19 05:01 MCHC 33.7 g/dL (32.0-36.0) 11/11/19 05:01 RDW 15.3 % (11.5-14.0) H 11/11/19 05:01 Plt Count 223 10^3/uL (150-450) 11/11/19 05:01 Lymph % (Auto) 12.0 % (13-45) L 11/10/19 18:38 [place] % (Auto) 5.5 % (3-13) 11/10/19 18:38 Eos % (Auto) 0.5 % (0-6) 11/10/19 18:38 Baso % (Auto) 0.8 % (0-2) 11/10/19 18:38 Absolute Neuts (auto) 9.1 10^3/uL (1.7-8.2) H 11/10/19 18:38 Absolute Lymphs (auto) 1.4 10^3/uL (0.5-4.7) 11/10/19 18:38 Absolute Monos (auto) 0.6 10^3/uL (0.1-1.4) 11/10/19 18:38 Absolute Eos (auto) 0.1 10^3/uL (0.0-0.6) 11/10/19 18:38 Absolute Basos (auto) 0.1 10^3/uL (0.0-0.2) 11/10/19 18:38 Seg Neutrophils % 81.2 % (42-78) H 11/10/19 18:38 Urine Color YELLOW 11/03/19 10:15 Urine Appearance SLIGHTLY-CLOUDY 11/03/19 10:15 Urine pH 7.0 (5.0-9.0) 11/03/19 10:15 Ur Specific [place] 1.008 11/03/19 10:15 Urine Protein NEGATIVE mg/dL (NEGATIVE) 11/03/19 10:15 Urine Glucose (UA) NEGATIVE mg/dL (NEGATIVE) 11/03/19 10:15 Urine Ketones NEGATIVE mg/dL (NEGATIVE) 11/03/19 10:15 Urine Blood NEGATIVE (NEGATIVE) 11/03/19 10:15 Urine Nitrite NEGATIVE (NEGATIVE) 11/03/19 10:15 Urine Bilirubin NEGATIVE (NEGATIVE) 11/03/19 10:15 Urine Urobilinogen NEGATIVE mg/dL (<2.0) 11/03/19 10:15 Ur Leukocyte Esterase LARGE (NEGATIVE) H 11/03/19 10:15 Urine WBC (Auto) 10 /HPF 11/03/19 10:15 Urine RBC (Auto) 7 /HPF 11/03/19 10:15 Urine Bacteria (Auto) TRACE /HPF 11/03/19 10:15 Squamous Epi Cells Auto 13 /HPF 11/03/19 10:15 Amorphous Sediment Auto TRACE /HPF 11/03/19 10:15 Urine Mucus (Auto) RARE /LPF 11/03/19 10:15 Urine Ascorbic Acid 20 (NEGATIVE) H 11/03/19 10:15 Urine Opiates Screen NEGATIVE 11/03/19 10:15 Urine Methadone Screen NEGATIVE 11/03/19 10:15 Ur Barbiturates Screen NEGATIVE 11/03/19 10:15 Ur Phencyclidine Scrn NEGATIVE 11/03/19 10:15 Ur Amphetamines Screen NEGATIVE 11/03/19 10:15 U Benzodiazepines Scrn NEGATIVE 11/03/19 10:15 Urine Cocaine Screen NEGATIVE 11/03/19 10:15 U Marijuana (THC) Screen NEGATIVE 11/03/19 10:15 Blood Type O POSITIVE 11/09/19 11:00 Antibody Screen NEGATIVE 11/09/19 11:00 Plan Plan of Treatment: d/c home. F/up with [facility] in once week for incision check Time Spent: Less than 30 Minutes
[2019-11-12 11:16] VITALS: BP 138/81
[2019-11-15] MEDS ORDERED: IBUPROFEN 800 MG TABLET PO SCH (12:00)
== END 2019-11-12 14:11 | disposition home or self-care (01) | DRG 784 ==
LOC: 2S 05:46
PROVIDERS: ADMIT Obstetrics & Gynecology Gynecology; ATTEND Obstetrics & Gynecology Gynecology
PROC: 10D00Z1 Extraction of Products of Conception, Low, Open Approach (ICD-10-PCS; 2019-11-10)
PROC: 0UL70CZ Occlusion of Bilateral Fallopian Tubes with Extraluminal Device, Open Approach (ICD-10-PCS; principal; 2019-11-10 09:00)
DX: O30.043 Twin pregnancy, dichorionic/diamniotic, third trimester (principal); O72.1 Other immediate postpartum hemorrhage; O34.211 Maternal care for low transverse scar from previous cesarean delivery; N85.8 Other specified noninflammatory disorders of uterus; Z3A.37 37 weeks gestation of pregnancy; Z37.2 Twins, both liveborn; Z30.2 Encounter for sterilization
CPT/HCPCS: 1961; 36415; 59025; 80307; 81001; 85025; 85027; 86850; 86900; 86901; 88307; 94760; 94799; J0131; J0690; J1885; J2250; J2270; J2405; J2550; J2590; J3010; J3490; J7060; J7120